=== PATIENT | male | born 1990 | race Two or more races ===

== ENCOUNTER 2016-10-05 13:56 | Emergency (ER) | payer SELFPAY ==
[2016-10-05 14:05] VITALS: BP 149/96; BMI 26.1
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
[2016-10-05] MEDS ORDERED: TORADOL 60 MG VIAL IM ONE (14:27)
--- NOTE | 2016-10-05 14:46 | RAD ---
HISTORY: Trauma Study: Right shoulder two views Comparison: Findings: The appearance of the clavicle and AC joint are unremarkable. The glenohumeral articulation is norm al in its appearance. No acute cortical disruption or dislocation can be identified. The visualize d portions of the scapula are unremarkable. In addition, the visualized portions of the chest appea r unremarkable. IMPRESSION: 1. Negative exam. Reported By:
--- NOTE | 2016-10-05 14:47 | RAD ---
Clinical history: Trauma right forearm Exam: Right forearm two views Findings goal a displaced oblique fracture is noted through the distal radius. There is medial displ acement and dorsal displacement of the distal radial fracture fragment. Avulsion fracture of the tip of the ulnar styloid process is noted. The metacarpals appear within normal limits. Impression: Displaced and angulated fracture of the distal radius. Avulsion fracture tip of the ulna r styloid process. Reported By:
[2016-10-05] MEDS ORDERED: TORADOL 60 MG VIAL ONE (14:50)
[2016-10-05] MEDS ORDERED: HYDROGEN PEROXIDE 3% ONE (15:11)
[2016-10-05] MEDS ORDERED: NEOSPORIN OINT ONE (15:11)
[2016-10-05] MEDS ORDERED: TETRACAINE HCL AFFEYE ONE (15:27)
[2016-10-05] MEDS ORDERED: ADACEL TDaP IM ONE ×2 (15:28→15:29)
== END 2016-10-05 15:36 | disposition home or self-care (01) ==
LOC: ER 14:05
PROC: 2W38X1Z Immobilization of Right Upper Extremity using Splint (ICD-10-PCS; principal; 2016-10-05)
DX: S62.101A Fracture of unspecified carpal bone, right wrist, initial encounter for closed fracture (principal); S50.811A Abrasion of right forearm, initial encounter; M24.521 Contracture, right elbow; V86.99XA Unspecified occupant of other special all-terrain or other off-road motor vehicle injured in nontraffic accident, initial encounter; Y92.9 Unspecified place or not applicable
CPT/HCPCS: 29105; 73030; 73090; 90471; 96372; 99282; 99283; J1885